=== PATIENT | female | born 1950 | race Caucasian/White ===

== ENCOUNTER 2018-08-08 20:28 | Inpatient (IN) | payer SELFPAY ==
[~2018-08-08] VITALS: Ht 154.9 cm; Wt 83.0 kg
[2018-08-08 20:39] VITALS: BP 155/90
--- NOTE | 2018-08-08 20:39 | NUR ---
TOBED # 9 AMBULATORY, REPORT GIVEN TO RICHA HANSEN
--- NOTE | 2018-08-08 21:00 | NUR ---
68/F CAME IN ED WITH FAMILY/FRIEND, C/O PRESSURE-LIKE/CRAMPING MID AND RLQ ABD PAIN, X2 DAYS. PT REPORTS N/V. LBM TODAY, REPORTS MILD CONSTIPATION. DENIES FEVER. AOX4, AMBULATORY, RR EVEN AND UNLABORED. LUNG SOUNDS CLEAR BL. BS HYPOACTIVE X4, ABD SOFT ROUND DIFFUSELY TENDER TO TOUCH. HX DM, HTN, PERITONITIS SURGERY (20 YEARS AGO), HERNIA
[2018-08-08] MEDS ORDERED: NACL 0.9% 1,000 ML IV ONE ×3 (21:03→22:35)
[2018-08-08] MEDS ORDERED: MORPHINE SULFATE 4 MG/ML SYR IVP ONE (21:05)
[2018-08-08] MEDS ORDERED: ONDANSETRON 4 MG/2 ML VIAL IVP ONE (21:05)
[2018-08-08 21:22] LABS: BASOPHILS # (AUTO) 0.1 K/uL (0.00-0.22); BASOPHILS % (AUTO) 0.6 % (0.0-2.0); EOSINOPHILS # (AUTO) 0.1 K/uL (0-0.4); EOSINOPHILS % (AUTO) 0.6 % (0.0-4.0); HEMATOCRIT 40.9 % (36-48); HEMOGLOBIN 13.6 g/dL (12.0-16.0); LYMPHOCYTES # (AUTO) 1.6 K/uL (2.5-16.5); LYMPHOCYTES % (AUTO) 12.1 % (20.5-51.1); MEAN CORPUSCULAR HEMOGLOBIN 29 pg (27-31); MEAN CORPUSCULAR HGB CONC 33 g/dL (33-37); MEAN CORPUSCULAR VOLUME 86.7 fL (80-94); MONOCYTES # (AUTO) 0.6 K/uL (0.8-1.0); MONOCYTES % (AUTO) 4.6 % (1.7-9.3); NEUTROPHILS # (AUTO) 10.8 K/uL (1.8-7.7); NEUTROPHILS % (AUTO) 82.1 % (42.2-75.2); PLATELET COUNT (AUTO) 309 K/uL (140-450); RED BLOOD CELL COUNT(AUTO) 4.72 MIL/uL (4.20-5.40); RED CELL DISTRIBUTION WIDTH 13.9 % (11.6-13.7); WHITE BLOOD COUNT (AUTO) 13.1 K/uL (4.8-10.8)
--- NOTE | 2018-08-08 22:05 | NUR ---
PT RESTING IN BED, RR EVEN AND UNLABORED. PT DENIES ANY PAIN OR NAUSEA AT THIS TIME. VS NOTED. ALL NEEDS MET.
[2018-08-08 22:11] LABS: ALBUMIN 3.5 g/dL (3.4-5.0); ANION GAP 15.9 (8-16); CARBON DIOXIDE 24.8 mmol/L (21-32); CREATININE 1.1 mg/dL (0.6-1.3); POTASSIUM 4.7 mmol/L (3.5-5.1); TOTAL BILIRUBIN 0.6 mg/dL (0.0-1.0)
[2018-08-08 22:21] LABS: APPEARANCE,URINE SL CLOUDY (CLEAR); BILIRUBIN,URINE NEGATIVE (NEGATIVE); BLOOD, URINE NEGATIVE (NEGATIVE); COLOR,URINE YELLOW (YELLOW); LEUKOCYTE ESTERASE ,URINE NEGATIVE (NEGATIVE); NITRITE, URINE POSITIVE (NEGATIVE); UGLUCOSE >=1000 (NEGATIVE)
[2018-08-08 22:31] LABS: RBC,URINE 0-5 (RARE) /HPF (0-5); WBC,URINE 20-60 /HPF (0-5)
[2018-08-08] MEDS ORDERED: LEVOFLOXACIN 750 MG/D5W PREMIX 150 ML IV ONE ×2 (22:35→22:55)
[2018-08-08] MEDS ORDERED: NACL 0.9% 1,000 ML IV SCH ×2 (22:41→22:55)
[2018-08-08] MEDS ORDERED: ONDANSETRON 4 MG/2 ML VIAL IM/IVP PRN (22:45)
[2018-08-08] MEDS ORDERED: ACETAMINOPHEN 325 MG TAB PO PRN (22:45)
[2018-08-08] MEDS ORDERED: HYDROcodone/APAP 5/325 MG 1 TAB TAB PO PRN (22:45)
[2018-08-08] MEDS ORDERED: ZOLPIDEM 5 MG TAB PO PRN (22:45)
[2018-08-08] MEDS ORDERED: MORPHINE SULFATE 4 MG/ML SYR IVP PRN (22:45)
[2018-08-08] MEDS ORDERED: LORazepam 2 MG/ML VIAL IM/IVP PRN (22:45)
[2018-08-08] MEDS ORDERED: DEXTROSE 50% 50 ML SYR IVP PRN (22:50)
[2018-08-08] MEDS ORDERED: DEXT 5% / NACL 0.9% 1,000 ML IV SCH (22:50)
--- NOTE | 2018-08-08 23:26 | NUR ---
BS IS NOW 333, DR. COHEN MADE AWARE. ORDERED 5 UNITS
[2018-08-08 23:40] LABS: CHOL/HDL RATIO 4.9 (1-4.5); MAGNESIUM 1.6 mg/dL (1.8-2.4); PHOSPHORUS 4.6 mg/dL (2.5-4.9); PROTHROMBIN TIME 9.1 secs (10.8-13.4); THYROID STIMULATING HORMONE 3.58 uIU/mL (0.34-3.74)
[2018-08-08] MEDS ORDERED: ALBUTEROL SULFATE/IPRATROPIU 3 ML SOL IH PRN (23:45)
[2018-08-08] MEDS ORDERED: INSULIN REGULAR, HUMAN 100 UNIT/ML VIAL IVP ONE (23:50)
--- NOTE | 2018-08-08 23:50 | NUR ---
Patient will be admitted to care of DR. HODGES. Admited to TELE. Will go to room 111. Belongings list completed. Report to ZELALEM HANSEN.
[2018-08-09 00:05] VITALS: BP 124/70
--- NOTE | 2018-08-09 00:05 | NUR ---
PT ARRIVED TO UNIT VIA GURNEY AND WAS ABLE TO AMBULATE WITHOUT ASSISTANCE TO BED. RECEIVED REPORT FROM ER NURSE KANDI-RN AT BEDSIDE. PT AOX4- KYRGYZ SPEAKING, ON ROOM AIR, IV SITE ON LEFT AC #18G RUNNING NS BOLUS AND LEVAQUIN. NG TUBE IN PLACE- INTERMITTENT 80-100 SUCTIONING. VITAL SIGNS TAKEN AND TOLERATED WELL. MRSA SWAB COLLECTED. DISCUSSED PLAN OF CARE AND PT VERBALIZED UNDERSTANDING. NO S/S OF RESPIRATORY DISTRESS OR DISCOMFORT NOTED AT THIS TIME. BED IN LOWEST POSITION, BED BREAKS ON, BOTH SIDE RAILS UP. ALLERGY ARM BAND IN PLACE. BEDSIDE TABLE AND CALL LIGHT ARE WITHIN REACH. WILL CONTINUE TO MONITOR.
[2018-08-09] MEDS ORDERED: MAG SULF 2000 MG/WATER PREMIX 50 ML IV SCH (01:00)
[2018-08-09] MEDS ORDERED: INSULIN REGULAR, HUMAN 100 UNIT/ML VIAL SUBQ SCH ×2 (01:30)
[2018-08-09] MEDS ORDERED: BLOOD GLUCOSE MONITORING 1 DEV DEV FS SCH (01:30)
--- NOTE | 2018-08-09 01:30 | NUR ---
BLOOD GLUCOSE 340- MD AWARE AND WILL ADMINISTER INSULIN COVERAGE PER DR BARBER
[2018-08-09] MEDS ORDERED: INSULIN LISPRO 100 UNITS/ML VIAL SUBQ SCH (01:40)
--- NOTE | 2018-08-09 01:52 | NUR ---
INSULIN COVERAGE GIVEN. PT TOLERATED WELL. WILL CONTINUE TO MONITOR.
[2018-08-09 02:14] LABS: BARBITURATE, URINE NEG. ng/ml (NEG <=200); BENZODIAZEPINE, URINE NEG. ng/mL (NEG <=200); CANNABINOID, URINE NEG. ng/mL (NEG <=50); COCAINE, URINE NEG. ng/mL (NEG <=300); OPIATE, URINE NEG. ng/mL (NEG <=2000); PHENCYCLIDINE SCREEN,URINE NEG. ng/mL (NEG <=25)
--- NOTE | 2018-08-09 02:22 | NUR ---
IVF HUNG AND TOLERATED WELL. MAGNESIUM SULFATE HUNG AND TOLERATED WELL. NO S/S OF RESPIRATORY DISTRESS OR DISCOMFORT NOTED AT THIS TIME. WILL CONTINUE TO MONITOR.
[2018-08-09] MEDS ORDERED: PNEUMOCOCCAL VACCINE 23 MCG/0.5 ML VIAL IMVAC PRN (03:15)
[2018-08-09] MEDS ORDERED: INFLUENZA VIRUS VACCINE QUAD 0.5 ML SYR IMVAC PRN (03:15)
[2018-08-09 04:00] VITALS: BP 126/63
--- NOTE | 2018-08-09 04:00 | NUR ---
VITAL SIGNS TAKEN AND TOLERATED WELL. NO S/S OF RESPIRATORY DISTRESS OR DISCOMFORT NOTED AT THIS TIME. WILL CONTINUE TO MONITOR.
--- NOTE | 2018-08-09 06:00 | NUR ---
BLOOD GLUCOSE 198- WILL ADMINISTER INSULIN COVERAGE.
[2018-08-09] MEDS: BLOOD GLUCOSE MONITORING 1 DEV DEV FS SCH ×4 (06:06→21:45)
[2018-08-09] MEDS: INSULIN LISPRO SLIDING SCALE 100 UNITS/ML VIAL SUBQ PRN ×4 (06:26→21:46)
--- NOTE | 2018-08-09 06:26 | NUR ---
INSULIN COVERAGE GIVEN AND TOLERATED WELL. NO S/S OF RESPIRATORY DISTRESS OR DISCOMFORT NOTED AT THIS TIME. WILL CONTINUE TO MONITOR.
[2018-08-09 06:39] LABS: BASOPHILS % (AUTO) 0.3 % (0.0-2.0); EOSINOPHILS # (AUTO) 0.2 K/uL (0-0.4); EOSINOPHILS % (AUTO) 1.8 % (0.0-4.0); HEMATOCRIT 37.4 % (36-48); HEMOGLOBIN 12.2 g/dL (12.0-16.0); LYMPHOCYTES # (AUTO) 1.6 K/uL (2.5-16.5); LYMPHOCYTES % (AUTO) 15.8 % (20.5-51.1); MEAN CORPUSCULAR HEMOGLOBIN 28 pg (27-31); MEAN CORPUSCULAR HGB CONC 33 g/dL (33-37); MEAN CORPUSCULAR VOLUME 86.9 fL (80-94); MONOCYTES # (AUTO) 0.7 K/uL (0.8-1.0); MONOCYTES % (AUTO) 6.5 % (1.7-9.3); NEUTROPHILS # (AUTO) 7.5 K/uL (1.8-7.7); NEUTROPHILS % (AUTO) 75.6 % (42.2-75.2); PLATELET COUNT (AUTO) 163 K/uL (140-450); RED CELL DISTRIBUTION WIDTH 13.8 % (11.6-13.7)
[2018-08-09 06:49] LABS: ANION GAP 12.5 (8-16); CARBON DIOXIDE 26.9 mmol/L (21-32); POTASSIUM 4.4 mmol/L (3.5-5.1)
--- NOTE | 2018-08-09 07:29 | NUR ---
ENDORSED PT CARE TO DAY SHIFT NURSE CAMMIE FOR CONTINUITY OF CARE.
--- NOTE | 2018-08-09 07:32 | NUR ---
RECEIVED PT FROM AUTOMOTIVE PARTS COORDINATOR NURSEANDRE, PT IS UP, SEATED ON THE BED AND WITH AN IV LINE ON THE LEFT AC G. 20 WITH NS AT 60ML/HR, INFUSING AND INTACT, SID3E RAILS ARE UP AND CALL LIGHT WITHIN REACH, PT DENIES PAIN AT THIS TIME AND NO SIGN OF DISTRESS NOTED, WILL CONTINUE TO MONITOR PT. Addendum: 08/09/18 at 0816 by Susu Calixto RN RECEIVED PT FROM AUTOMOTIVE PARTS COORDINATOR NURSEANDRE, PT IS AWAKE AND LYING ON THE BED WITH SIDE RAILS UP AND CALL LIGHT WITHIN REACH, PT HAS AN IV LINE ON THE LEFT AC G.18, INTACT WITH NS AT 60ML/HR, INFUSING, PT HAS AN NG TUBE IN PLACE AND ON AN INTERMITTENT SUCTION, OUTPUT WHEN PT WAS RECEIVED WAS ON THE 70 LEVEL, PT DENIES PAIN AT THIS TIME AND NO SIGN OF DISTRESS NOTED, WILL CONTINUE TO MONITOR PT.
[2018-08-09 08:00] VITALS: BP 123/64
--- NOTE | 2018-08-09 08:25 | NUR ---
SMALL BOWEL THROUGH PROCEDURE IS BEING DONE TO PT NOW, ASSISTED THE FLAME BRAZING MACHINE OPERATOR, RAEANN IN ADMINISTERING THE CONTRAST TO THE PT THROUGH THE NG TUBE, PT TOLERATED IT, WILL MONITOR PT.
--- NOTE | 2018-08-09 08:28 | NUR ---
PATIENT HAS BEEN SCREENED AND CATEGORIZED HIGH NUTRITION RISK. PATIENT WILL BE SEEN WITHIN 1-2 DAYS OF ADMISSION. 08/09/18-08/10/[address]
--- NOTE | 2018-08-09 08:50 | NUR ---
PT'S AM ORAL MEDICATIONS WERE HOLD OFF DUE TO PARAMETERS, PT WAS GIVEN CONTRAST FOR THE SMALL BOWEL FOLLOW THROUGH
[2018-08-09] MEDS: LISINOPRIL 5 MG TAB PO SCH (09:00)
[2018-08-09] MEDS: LACTOBACILLUS RHAMNOSUS GG 1 EACH CAP PO SCH (09:00)
--- NOTE | 2018-08-09 09:52 | NUR ---
XR OF THE SMALL BOWEL IS BEING DONE TO PT NOW BY RAD LOMBARDI DEVELOPER, RAEANN.
[2018-08-09 10:45] LABS: MAGNESIUM 2.4 mg/dL (1.8-2.4); PHOSPHORUS 3.8 mg/dL (2.5-4.9)
[2018-08-09] MEDS ORDERED: metFORMIN 850 MG TAB PO SCH (11:00)
[2018-08-09 12:00] VITALS: BP 101/52
[2018-08-09] MEDS: DEXT 5% /NACL 0.9% 1,000 ML IV SCH ×2 (12:23→19:51)
--- NOTE | 2018-08-09 12:50 | NUR ---
XR OF SMALL BOWEL IS BEING DONE TO PT NOW
[2018-08-09] MEDS: metroNIDAZOLE 500 MG/NS PREMIX 100 ML IV SCH ×2 (13:04→21:00)
--- NOTE | 2018-08-09 13:10 | NUR ---
PT IS AWAKE AND IVPB MEDICATION WAS GIVEN AND PT TOLERATED IT. WILL MONITOR PT.
--- NOTE | 2018-08-09 13:32 | NUR ---
08/09/18 RD INITIAL ASSESSMENT COMPLETED PLEASE REFER TO NUTRITION ASSESSMENT UNDER CARE ACTIVITY FOR ESTIMATED NUTRITIONAL NEEDS. 1. RECOMMEND CONTINUE NPO DIET, UNTIL MEDICALLY APPROPRIATE TO BEGIN NUTRITION 2. WHEN/IF PT MEDICALLY STABLE TO BEGIN NUTRITION, CONSIDER ADVANCE DIET TOLERATED TO CCHO 60 GM 3. DIETITIAN PROVIDED DIABETES NUTRITIONAL EDUCATION 4. RD TO FOLLOW-UP 3-5 DAYS, MODERATE RISK VIANEY FISHMAN RD
[2018-08-09 16:00] VITALS: BP 119/64
[2018-08-09] MEDS: metFORMIN 850 MG TAB PO SCH (17:25)
--- NOTE | 2018-08-09 17:44 | NUR ---
PT IS AWAKE AND ASSISTED TO AMBULATE TO THE BATHROOM, AND ASSISTED BACK TO BED, MEDICATION GIVEN VIA NG TUBE AND PT TOLERATED IT, NG TUBE WAS RECONNECTED TO INTERMITTENT LOW SUCTION. NO SIGN OF DISTRESS NOTED AND WILL CONTINUE TO MONITOR.
--- NOTE | 2018-08-09 17:50 | NUR ---
PT SAID THAT SHE DOES NOT HAVE ANY PAIN NOR ANY FEELINGS OF NAUSEA AND VOMITING,PT VERBALIZED THAT SHE HAD BEEN PASSING GAS.
--- NOTE | 2018-08-09 18:00 | NUR ---
DR. MILTON CAME TO PT'S ROOM AND ASSESSED THE PT, MD SAID THAT PT NEEDS TO BE ON NG TUBE FOR 24 HRS MORE BUT IF PT VERBALIZED TOMORROW THAT SHE FEELS MUCH BETTER AND HAD BEEN PASSING GAS, NG TUBE MAY BE D/C AND PT MAY START ON CLEAR LIQUID DIET. DR. AQUINO INFORMED PT OF THE POC.
--- NOTE | 2018-08-09 19:25 | NUR ---
ENDORSED PT TO ORE GRADER NURSESHERICE FOR CONTINUITY OF CARE, PT IS STABLE AT THIS TIME.
--- NOTE | 2018-08-09 19:26 | NUR ---
RECEIVED BEDSIDE REPORT FROM AM SHIFT NURSE. PT IS AWAKE AND LYING ON THE BED WITH SIDE RAILS UP AND CALL LIGHT WITHIN REACH, PT HAS AN IV LINE ON THE LEFT AC G.18, INTACT WITH NS AT 60ML/HR, INFUSING, PT HAS AN NG TUBE IN PLACE AND ON AN INTERMITTENT SUCTION, OUTPUT WHEN PT WAS RECEIVED WAS ON THE 70 LEVEL, PT ON NPO EXCEPT MEDS.NO SIGN S OF RESPIRATORY DISTRESS NOTED. NO COMPLAINTS OF PAIN, WILL CONTINUE TO MONITOR PT.
[2018-08-09 20:00] VITALS: BP 130/65
--- NOTE | 2018-08-09 21:50 | NUR ---
PT VOIDED USING BEDPAN. ABLE TO STAND UP WITH MAX ASSISTANCE. WILL CONTINUE TO MONITOR
[2018-08-09] MEDS ORDERED: metroNIDAZOLE 500 MG/NS PREMIX 100 ML IV SCH (23:00)
[2018-08-10] VITALS: BP 130/65
[2018-08-10] MEDS: DEXT 5% /NACL 0.9% 1,000 ML IV SCH ×3 (00:11→23:09)
[2018-08-10 04:00] VITALS: BP 135/70
[2018-08-10] MEDS: BLOOD GLUCOSE MONITORING 1 DEV DEV FS SCH ×4 (04:39→20:01)
[2018-08-10] MEDS: INSULIN LISPRO SLIDING SCALE 100 UNITS/ML VIAL SUBQ PRN ×4 (04:44→19:41)
[2018-08-10] MEDS: metroNIDAZOLE 500 MG/NS PREMIX 100 ML IV SCH ×3 (05:00→20:02)
--- NOTE | 2018-08-10 06:34 | NUR ---
INTERMITTENT SUCTION VIA NGT TUBE TAKEN AT THE LEVEL OF 750. GASTRIC OUTPUT FOR THE MY SHIFT WAS 50 ML
[2018-08-10 07:11] LABS: BASOPHILS % (AUTO) 0.4 % (0.0-2.0); EOSINOPHILS # (AUTO) 0.2 K/uL (0-0.4); EOSINOPHILS % (AUTO) 2.9 % (0.0-4.0); HEMATOCRIT 35.4 % (36-48); HEMOGLOBIN 11.7 g/dL (12.0-16.0); LYMPHOCYTES # (AUTO) 1.7 K/uL (2.5-16.5); LYMPHOCYTES % (AUTO) 22.7 % (20.5-51.1); MEAN CORPUSCULAR HEMOGLOBIN 29 pg (27-31); MEAN CORPUSCULAR HGB CONC 33 g/dL (33-37); MEAN CORPUSCULAR VOLUME 87.5 fL (80-94); MONOCYTES # (AUTO) 0.6 K/uL (0.8-1.0); MONOCYTES % (AUTO) 7.6 % (1.7-9.3); NEUTROPHILS # (AUTO) 5.1 K/uL (1.8-7.7); NEUTROPHILS % (AUTO) 66.4 % (42.2-75.2); PLATELET COUNT (AUTO) 255 K/uL (140-450); RED BLOOD CELL COUNT(AUTO) 4.05 MIL/uL (4.20-5.40); RED CELL DISTRIBUTION WIDTH 13.5 % (11.6-13.7); WHITE BLOOD COUNT (AUTO) 7.7 K/uL (4.8-10.8)
[2018-08-10 07:12] LABS: ANION GAP 9.6 (8-16); CARBON DIOXIDE 27.2 mmol/L (21-32); CREATININE 0.9 mg/dL (0.6-1.3); POTASSIUM 3.8 mmol/L (3.5-5.1)
[2018-08-10 07:17] LABS: MAGNESIUM 1.7 mg/dL (1.8-2.4); PHOSPHORUS 2.5 mg/dL (2.5-4.9)
--- NOTE | 2018-08-10 07:35 | NUR ---
PT ENDORSED TO AM SHIFT. PT IN STABLE CONDITION.
--- NOTE | 2018-08-10 07:40 | NUR ---
RECEIVED PT FROM HADOOP INFRASTRUCTURE ARCHITECT NURSESHERICE, PT IS AWAKE AND LYING ON THE BED WITH SIDE RAILS UP AND CALL LIGHT WITHIN REACH, PT HAS AN NG TUBE IN PLACE ON LOW INTERMITTENT SUCTION, PT HAS AN IV LINE ON LEFT AC G. 18, INTACT WITH D5NS INFUSING AT 110ML/HR. PT DENIES PAIN AT THIS TIME AND NO SIGN OF DISTRESS NOTED. WILL CONTINUE TO MONITOR PT.
[2018-08-10 08:00] VITALS: BP 121/65
[2018-08-10] MEDS ORDERED: MAG SULF 2000 MG/WATER PREMIX 100 ML IV ONE (08:40)
[2018-08-10] MEDS: LACTOBACILLUS RHAMNOSUS GG 1 EACH CAP PO SCH (08:44)
[2018-08-10] MEDS: LISINOPRIL 5 MG TAB PO SCH (08:45)
[2018-08-10] MEDS: metFORMIN 850 MG TAB PO SCH ×2 (08:45→17:36)
--- NOTE | 2018-08-10 08:50 | NUR ---
PT IS AWAKE AND VITAL SIGNS TAKEN PRIOR TO MEDICATION ADMINISTRATION, PT TOLERATED IT, DENIES PAIN AND NO SIGN OF DISTRESS NOTED, WILL CONTINUE TO MONITOR PT.
[2018-08-10] MEDS ORDERED: MAGNESIUM SULFATE 4GM in STERILE WATER 100 ML PREMIX IV SCH (09:00)
[2018-08-10] MEDS ORDERED: LEVOFLOXACIN 750 MG/D5W PREMIX 150 ML IV SCH (09:00)
--- NOTE | 2018-08-10 10:53 | NUR ---
PT WAS ASSISTED TO THE COMMODE AND PT MADE A A BOWEL MOVEMENT, IV MEDICATION WAS GIVEN ALSO VIA PIGGYBACK AND PT TOLERATED IT, WILL CONTINUE TO MONITOR PT.
--- NOTE | 2018-08-10 11:30 | NUR ---
PT WAS TRANSFERRED TO MED-SURG NOW, HEART MONITOR REMOVED AND HANDED TO MARKETING REPRESENTATIVE ANTHONY. BLOOD GLUCOSE CHECK DONE ALSO AND RESULT IS 274 AND INSULIN COVERAGE NEEDED. WILL ,MONITOR PT.
--- NOTE | 2018-08-10 11:44 | NUR ---
PT'S IV LINE WAS INFILTRATED AND A NEW IV LINE WAS INSERTED ON THE RT FA G. 22, NG TUBE WAS REMOVED, PT TOLERATED IT AND NO SIGN OF DISTRESS NOTED. WILL MONITOR PT.
[2018-08-10 12:00] VITALS: BP 127/73
--- NOTE | 2018-08-10 13:46 | NUR ---
PT IS AWAKE AND TALKING TO THE DAUGHTER, MAGNESIUM IVPB WAS GIVEN FOR A MG LEVEL OF1.7, AND PT TOLERATED IT, WILL CONTINUE TO MONITOR PT.
[2018-08-10 16:00] VITALS: BP 141/74
--- NOTE | 2018-08-10 17:40 | NUR ---
PT IS AWAKE AND INSULIN 4 UNITS WAS GIVEN ON THE ;EFT UA, PT TOLERATED IT. NO SIGN OF DISTRESS NOTED. WILL MONITOR PT.
--- NOTE | 2018-08-10 19:25 | NUR ---
ENDORSED PT TO AIRCRAFT STRUCTURE MECHANIC NURSENIKKI FOR CONTINUITY OF CARE, PT IS STABLE AT THIS TIME.
--- NOTE | 2018-08-10 19:26 | NUR ---
RECEIVED REPORT FROM DAYSHIFT NURSE AT BEDSIDE FOR CONTINUITY OF CARE. PT AAOX4 ANGOLAN SPEAKING. PT HAS NO SOB NO S/S OF DISTRESS ON RA. IV NOTED RFA 22G NS 110 ML/HR. (MG RIDER INFUSING AT THIS TIME). BED LOWERED CALL LIGHT WITHIN REACH WILL CONTINUE TO MONITOR.
[2018-08-10 20:00] VITALS: BP 137/72
--- NOTE | 2018-08-10 20:10 | NUR ---
PT TOLERATED MEDS WELL NO N/V. WILL CONTINUE TO MONITOR.
--- NOTE | 2018-08-10 21:48 | NUR ---
ADMIN PAIN MED OVER 1HR AGO. PT IS CURRENTLY SLEEPING. NO SOB NO S/S OF DISTRESS ON RA.WILL CONTINUE TO MONITOR.
[2018-08-11] VITALS: BP 122/73
[2018-08-11] MEDS: metroNIDAZOLE 500 MG/NS PREMIX 100 ML IV SCH (04:13)
--- NOTE | 2018-08-11 05:43 | NUR ---
PT SLEEPING NO SOB NO S/S OF DISTRESS ON RA. WILL CONTINUE TO MONITOR.
[2018-08-11] MEDS: INSULIN LISPRO SLIDING SCALE 100 UNITS/ML VIAL SUBQ PRN (06:24)
[2018-08-11] MEDS: BLOOD GLUCOSE MONITORING 1 DEV DEV FS SCH (06:26)
[2018-08-11] MEDS ORDERED: LISI-424 PO (06:49)
[2018-08-11] MEDS ORDERED: METF850T PO (06:49)
[2018-08-11] MEDS ORDERED: DOCU-299 PO (06:53)
[2018-08-11] MEDS ORDERED: SENN-73 PO (06:53)
--- NOTE | 2018-08-11 07:05 | NUR ---
RECEIVED BEDSIDE REPORT FROM PM NURSE NIKKI. PT IN BED, AWAKE, VERBALLY RESPONSIVE, FLACC 0. CALL LIGHT WITHIN REACH.
[2018-08-11 08:00] VITALS: BP 129/72
[2018-08-11] MEDS: metFORMIN 850 MG TAB PO SCH (08:06)
[2018-08-11] MEDS: LISINOPRIL 5 MG TAB PO SCH (08:07)
[2018-08-11] MEDS: LACTOBACILLUS RHAMNOSUS GG 1 EACH CAP PO SCH (08:07)
[2018-08-11] MEDS: DEXT 5% /NACL 0.9% 1,000 ML IV SCH (08:08)
--- NOTE | 2018-08-11 09:34 | NUR ---
WRITTEN & VERBAL DISCHARGE INSTRUCTIONS PROVIDED TO PT WITH USE OF BLUE PHONE OUTSIDE PARTS SALESMAN MEGAN (#[id number]). PT VERBALIZED UNDERSTANDING. FLU VACCINE ADMINISTERED. PER PT, SHE HAS RECEIVED PNA VACCINE IN 2016 & DOES NOT WANT TO RECEIVE ANOTHER DOSE AT THIS TIME. IV ACCESS DISCONTINUED. PER PT, HER DAUGHTER WILL COME TO PICK HER UP VIA PRIVATE CAR IN 2HRS. PT DENIES ANY PAIN. RESPIRATIONS EVEN & UNLABORED. CALL LIGHT WITHIN REACH.
--- NOTE | 2018-08-11 10:45 | NUR ---
PT DISCHARGED AT THIS TIME. LEFT UNIT VIA WHEELCHAIR, ACCOMPANIED BY DAUGHTER & RN. PT ABLE TO AMB FROM WHEELCHAIR TO CAR WITH SLOW STEADY GAIT. PT DENIES ANY DISCOMFORT. ALL BELONGINGS WITH PT. NAME BAND REMOVED.
== END 2018-08-11 10:45 | disposition home or self-care (01) | DRG 871 ==
LOC: MED 20:28 → MTU 22:55
PROVIDERS: ADMIT General Practice; ATTEND General Practice
PROC: 0D9670Z Drainage of Stomach with Drainage Device, Via Natural or Artificial Opening (ICD-10-PCS; principal; 2018-08-10)
PROC: 3E02340 Introduction of Influenza Vaccine into Muscle, Percutaneous Approach (ICD-10-PCS; 2018-08-11)
DX: A41.9 Sepsis, unspecified organism (principal); E11.00 Type 2 diabetes mellitus with hyperosmolarity without nonketotic hyperglycemic-hyperosmolar coma (NKHHC); N17.0 Acute kidney failure with tubular necrosis; K40.30 Unilateral inguinal hernia, with obstruction, without gangrene, not specified as recurrent; E87.1 Hypo-osmolality and hyponatremia; N13.6 Pyonephrosis; E66.9 Obesity, unspecified; I10 Essential (primary) hypertension; E03.9 Hypothyroidism, unspecified; E83.42 Hypomagnesemia; Z88.0 Allergy status to penicillin; Z88.2 Allergy status to sulfonamides; Z68.35 Body mass index [BMI] 35.0-35.9, adult; Z23 Encounter for immunization
CPT/HCPCS: 36415; 71045; 74250; 80048; 80053; 80305; 81001; 82948; 83036; 83605; 83690; 83735; 83880; 84100; 84134; 84443; 84484; 85025; 85610; 85730; 87040; 87081; 87086; 87186; 90658; 93925; 93970; 96365; 96375; 99285; J1815; J1956; J2270; J2405; J3475; J3490; J7030; J7042; Q0092